=== PATIENT | female | born 1935 | race Hispanic/Latino ===

== ENCOUNTER → 2019-03-25 | Day surgery (SDC) | payer MEDICARE, OTHER ==
[2019-03-23 13:36] LABS: BASOPHILS # (AUTO) 0.1 (0.0-0.1); BASOPHILS % 0.8 % (0.0-1.0); EOSINOPHILS # (AUTO) 0.2 (0.0-0.4); HEMATOCRIT 36.3 % (34.2-44.1); HEMOGLOBIN 12.2 g/dL (12.0-16.0); LYMPHOCYTES # (AUTO) 1.9 (1.0-3.2); LYMPHOCYTES % 25.4 % (18.0-39.1); MEAN CORPUSCULAR HEMOGLOBIN 30.3 pg (28-32); MEAN CORPUSCULAR HGB CONC 33.6 g/dL (31-35); MEAN CORPUSCULAR VOLUME 90.1 fL (81-99); MONOCYTES # (AUTO) 0.4 (0.2-0.8); MONOCYTES % 5.5 % (4.4-11.3); NEUTROPHILS # (AUTO) 4.9 (2.1-6.9); NEUTROPHILS % 65.9 % (38.7-80.0); PLATELET COUNT 327 x10e3/uL (140-360); RED BLOOD COUNT 4.03 x10e6/uL (3.6-5.1); RED CELL DISTRIBUTION WIDTH 14.5 % (11.7-14.4)
[2019-03-23 13:43] LABS: BILIRUBIN,URINE NEGATIVE (NEGATIVE); CLARITY,URINE CLEAR (CLEAR); COLOR,URINE ORANGE (YELLOW); KETONES,URINE NEGATIVE (NEGATIVE); LEUKOCYTE ESTERASE ,URINE SMALL (NEGATIVE); NITRITE,URINE NEGATIVE (NEGATIVE); PROTEIN,URINE DIPSTICK 1+ (NEGATIVE); URINE UROBILINOGEN 0.2 mg/dL (0.2 - 1)
[2019-03-23 13:57] LABS: ALBUMIN 3.7 g/dL (3.5-5.0); ALBUMIN/GLOBULIN RATIO 1.1 (0.8-2.0); ANION GAP 15.3 mmol/L (8-16); CREATININE, SERUM 1.45 mg/dL (0.57-1.11); POTASSIUM 4.3 mmol/L (3.5-5.1)
--- NOTE | 2019-03-23 13:59 | Diagnostic Imaging Report ---
EXAMINATION: CHEST 2 VIEWS INDICATION: Pre-operative COMPARISON: None FINDINGS: LINES/TUBES:None LUNGS:The lungs are well-inflated. No focal consolidation or pulmonary edema. PLEURA:No pleural effusion or pneumothorax. MEDIASTINUM:The cardiomediastinal silhouette appears normal in size and shape. Atherosclerotic calcifications of the thoracic aorta. BONES/SOFT TISSUES:No acute osseous injury. ABDOMEN:No free air under the diaphragm. IMPRESSION: No focal pneumonia or pulmonary edema. Signed by: Liana Elliott MD on 03/23/2019 1:55 PM
[~2019-03-25] MED LIST: ALLOPURINOL100 MG PO; BUPIVACAINE 0.25%/EPI 30ML SDV INJ ONE; DEXAMETHASONE SOD PHOS INJ 4 MG/ML VIAL ONE; FENOFIBRATE PO; FENTANYL CITRATE/PF 100MCG/2 ML INJ ONE; GLYCOPYRROLATE INJ 1MG/ 5 ML SYR ONE; HYDROCODONE/APAP 7.5MG-325MG 1 EA TAB ONE; KETOROLAC TROMETHAMINE 30 MG/ML VIAL ONE; LEVOTHYROXINE25 MCG PO; LEVOTHYROXINE50 MCG PO; LIDOCAINE HCL 2% LOCAL INJ 5 ML SDV VIAL INJ ONE; LIPITOR20 MG PO; LOSARTAN POTAS100 MG PO; NEOSTIGMINE 5 MG/5ML SYR ONE; ONDANSETRON HCL INJ 2MG/ML 2ML 2 MG/ML VIAL ONE; POTASSIUM PO; PRAVASTATIN SOD10 MG PO; PROPOFOL IV EMULSION 10 MG/ML 20 ML VIAL ONE; SEVOFLURANE INHAL SOLN 250 ML PEN BTL ONE; SLOW-MAG64 MG PO; ULTRAM 50MG50 MG PO; VESICARE10 MG PO
--- OUTSIDE RECORDS SUMMARY | 2019-03-25 07:11 | XMS REPORT | Continuity of Care Document ---
Author Author [facility] Address Unknown Phone Unavailable Care Team Providers Care Zoology Technical Officer Name Role Phone [facility] Unavailable Unavailable Problems Problem Status Onset Date Classification Date Reported Comments Source CKD STAGE III GFR 30-59 Active 09/07/2014 Condition 03/16/2015 [facility] NEED PROPHYLACTIC VACCINATION&INOCULATION FLU Active 06/17/2014 Condition 03/16/2015 [facility] MICHAELLE POSITIVE Active 06/17/2014 Condition 03/16/2015 [facility] POLYARTHRALGIA Active 06/17/2014 Condition 03/16/2015 [facility] OSTEOPENIA Active 12/30/2013 Condition 03/16/2015 [facility] URINARY INCONTINENCE Active 12/30/2013 Condition 03/16/2015 [facility] PREVENTIVE HEALTH CARE Active 12/16/2013 Condition 03/16/2015 [facility] HYPERLIPIDEMIA Active 12/16/2013 Condition 03/16/2015 [facility] ESSENTIAL HYPERTENSION, BENIGN Active 12/16/2013 Condition 03/16/2015 [facility] HYPOTHYROIDISM Active 12/16/2013 Condition 03/16/2015 [facility] OTHER SCREENING MAMMOGRAM Active 12/16/2013 Condition 03/16/2015 [facility] SCREENING, COLON CANCER Active 12/16/2013 Condition 03/16/2015 [facility] SCREENING FOR GLAUCOMA Active 12/16/2013 Condition 03/16/2015 [facility] GOUT Active 12/16/2013 Condition 03/16/2015 [facility] CHRONIC KIDNEY DISEASE UNSPECIFIED Inactive 12/16/2013 Condition 03/16/2015 [facility] ARTHRITIS Active 12/16/2013 Condition 03/16/2015 [facility] SPECIAL SCREENING FOR OSTEOPOROSIS Inactive 12/16/2013 Condition 03/16/2015 [facility] NEED PROPH VACCINATION AGAINST STREP PNEUMONE Active 12/16/2013 Condition 03/16/2015 [facility] Medications Medication Details Route Status Patient Instructions Ordering Provider Order Date Source DIOVAN HCT 320-12.5 MG TABS Take one tablet by mouth once a day Active 12/30/2013 [facility] CALTRATE 600+D 600-400 MG-UNIT TABS 1 tablet twice daily Active 12/30/2013 [facility] DIOVAN HCT 320-12.5 MG TABS Take one tablet by mouth once a day Active 12/30/2013 [facility] DIOVAN HCT 320-12.5 MG TABS Take one tablet by mouth once a day Active 12/30/2013 [facility] FENOFIBRATE 160 MG TABS TAKE ONE TABLET BY MOUTH DAILY No Longer Active 12/16/2013 [facility] LEVOTHYROXINE SODIUM 50 MCG TABS TAKE ONE TABLET BY MOUTH EVERY MORNING Active 12/16/2013 [facility] AMLODIPINE BESYLATE 5 MG TABS TAKE ONE TABLET BY MOUTH DAILY No Longer Active 12/16/2013 [facility] ALLOPURINOL 100 MG TABS TAKE ONE TABLET BY MOUTH DAILY Active 12/16/2013 [facility] VESICARE 5 MG TABS TAKE ONE TABLET BY MOUTH DAILY Active 12/16/2013 [facility] PRAVASTATIN SODIUM 40 MG TABS TAKE ONE TABLET BY MOUTH DAILY Active 12/16/2013 [facility] LYRICA 75 MG CAPS TAKE ONE TO TWO CAPSULES BY MOUTH EVERY EVENING Active 12/16/2013 [facility] TRAMADOL-ACETAMINOPHEN 37.5-325 MG TABS TAKE TWO TABLETS BY MOUTH THREE TIMES DAILY NEEDED Active 12/16/2013 [facility] DIOVAN 320 MG TABS Take one tablet by mouth once a day Active 12/16/2013 [facility] AMLODIPINE BESYLATE 5 MG TABS TAKE ONE TABLET BY MOUTH DAILY No Longer Active 12/16/2013 [facility] FENOFIBRATE 160 MG TABS TAKE ONE TABLET BY MOUTH DAILY No Longer Active 12/16/2013 [facility] TRAMADOL-ACETAMINOPHEN 37.5-325 MG TABS TAKE TWO TABLETS BY MOUTH TWO TIMES DAILY NEEDED Active 12/16/2013 [facility] VESICARE 5 MG TABS TAKE ONE TABLET BY MOUTH DAILY Active 12/16/2013 [facility] PRAVASTATIN SODIUM 20 MG TABS Take one tablet by mouth once a day at night Active 12/16/2013 [facility] ALLOPURINOL 100 MG TABS TAKE ONE TABLET BY MOUTH DAILY Active 12/16/2013 [facility] LEVOTHYROXINE SODIUM 25 MCG TABS Take one tablet by mouth once a day 30 minutes before breakfast Active 12/16/2013 [facility] LYRICA 75 MG CAPS TAKE ONE TO TWO CAPSULES BY MOUTH EVERY EVENING No Longer Active 12/16/2013 [facility] AMLODIPINE BESYLATE 5 MG TABS TAKE ONE TABLET BY MOUTH DAILY No Longer Active 12/16/2013 [facility] LYRICA 75 MG CAPS TAKE ONE TO TWO CAPSULES BY MOUTH EVERY EVENING No Longer Active 12/16/2013 [facility] VESICARE 5 MG TABS TAKE ONE TABLET BY MOUTH DAILY Active 12/16/2013 [facility] PRAVASTATIN SODIUM 20 MG TABS Take one tablet by mouth once a day at night Active 12/16/2013 [facility] ALLOPURINOL 100 MG TABS TAKE ONE TABLET BY MOUTH DAILY Active 12/16/2013 [facility] LEVOTHYROXINE SODIUM 50 MCG TABS Take one tablet by mouth once a day 20 minutes before breakfast Active 12/16/2013 [facility] AMLODIPINE BESYLATE 5 MG TABS TAKE ONE TABLET BY MOUTH DAILY No Longer Active 12/16/2013 [facility] LYRICA 75 MG CAPS TAKE ONE TO TWO CAPSULES BY MOUTH EVERY EVENING Active 12/16/2013 [facility] TRAMADOL-ACETAMINOPHEN 37.5-325 MG TABS TAKE TWO TABLETS BY MOUTH TWO TIMES DAILY NEEDED Active 12/16/2013 [facility] ALLOPURINOL 100 MG TABS TAKE ONE TABLET BY MOUTH DAILY Active 12/16/2013 [facility] TRAMADOL-ACETAMINOPHEN 37.5-325 MG TABS TAKE TWO TABLETS BY MOUTH TWO TIMES DAILY NEEDED Active 12/16/2013 [facility] ALLOPURINOL 100 MG TABS TAKE ONE TABLET BY MOUTH DAILY Active 12/16/2013 [facility] Allergies, Adverse Reactions, Alerts No Known Medication Allergies Immunizations Immunization Date Given Site Status Last Updated Comments Source pneumococcal immunization administered 12/16/2013 completed [facility] Results Order Name Results Value Reference Range Date Interpretation Comments Source Chemistry TSH 5.000 0.360 - 3.740 03/16/2015 [facility] Chemistry TSH 5.000 0.360 - 3.740 03/16/2015 [facility] Chemistry T4, FREE 0.94 0.76 - 1.46 03/16/2015 [facility] Chemistry TSH 5.450 0.360 - 3.740 01/27/2015 [facility] Chemistry SODIUM 139 MEQ/L 135 - 145 01/27/2015 [facility] Chemistry POTASSIUM 4.5 MEQ/L 3.5 - 5.1 01/27/2015 [facility] CREATININE 1.2 0.5 - 1.4 01/27/2015 [facility] Chemistry BUN 25 7 - 22 01/27/2015 [facility] Chemistry BUN/CREAT 21 6 - 25 01/27/2015 [facility] Chemistry ALBUMIN 3.9 3.5 - 5.0 01/27/2015 [facility] Chemistry CALCIUM 9.6 8.5 - 10.5 01/27/2015 [facility] Chemistry SGPT (ALT) 28 0 - 65 01/27/2015 [facility] Chemistry SGOT (AST) 24 0 - 37 01/27/2015 [facility] Chemistry ALK PHOS 83 39 - 136 01/27/2015 [facility] Chemistry T4, FREE 0.88 0.76 - 1.46 01/27/2015 [facility] Chemistry TSH 5.450 0.360 - 3.740 01/27/2015 [facility] Chemistry TSH 0.032 0.360 - 3.740 11/23/2014 [facility] Chemistry TSH 0.032 0.360 - 3.740 11/23/2014 [facility] Chemistry T4, FREE 1.65 0.76 - 1.46 11/23/2014 [facility] Chemistry TSH 0.032 0.360 - 3.740 11/23/2014 [facility] Chemistry TSH 3.950 0.360 - 3.740 09/07/2014 [facility] CHOLESTEROL 116 - 199 09/07/2014 [facility] TRIGLYCERIDE 144 - 149 09/07/2014 [facility] Chemistry HDL 36 >=61 09/07/2014 [facility] Chemistry LDL 51 - 99 09/07/2014 [facility] Chemistry SODIUM 138 MEQ/L 135 - 145 09/07/2014 [facility] Chemistry POTASSIUM 4.6 MEQ/L 3.5 - 5.1 09/07/2014 [facility] Chemistry CREATININE 1.7 0.5 - 1.4 09/07/2014 [facility] Chemistry BUN 45 7 - 22 09/07/2014 [facility] Chemistry BUN/CREAT 26 6 - 25 09/07/2014 [facility] Chemistry ALBUMIN 3.7 3.5 - 5.0 09/07/2014 [facility] Chemistry CALCIUM 10.3 8.5 - 10.5 09/07/2014 [facility] Chemistry SGPT (ALT) 22 0 - 65 09/07/2014 [facility] Chemistry SGOT (AST) 19 0 - 37 09/07/2014 [facility] Chemistry ALK PHOS 56 39 - 136 09/07/2014 [facility] Chemistry TSH 3.950 0.360 - 3.740 09/07/2014 [facility] Chemistry TSH 3.950 0.360 - 3.740 09/07/2014 [facility] Chemistry SODIUM 139 MEQ/L 135 - 145 07/06/2014 [facility] Chemistry POTASSIUM 4.4 MEQ/L 3.5 - 5.1 07/06/2014 [facility] Chemistry CREATININE 1.5 0.5 - 1.4 07/06/2014 [facility] Chemistry BUN 32 7 - 22 07/06/2014 [facility] Chemistry BUN/CREAT 21 6 - 25 07/06/2014 [facility] Chemistry ALBUMIN 4.1 3.5 - 5.0 07/06/2014 [facility] Chemistry CALCIUM 10.8 8.5 - 10.5 07/06/2014 [facility] Chemistry SGPT (ALT) 24 0 - 65 07/06/2014 [facility] Chemistry SGOT (AST) 22 0 - 37 07/06/2014 [facility] Chemistry ALK PHOS 49 39 - 136 07/06/2014 [facility] Chemistry SODIUM 139 MEQ/L 135 - 145 07/06/2014 [facility] Chemistry POTASSIUM 4.4 MEQ/L 3.5 - 5.1 07/06/2014 [facility] Chemistry CREATININE 1.5 0.5 - 1.4 07/06/2014 [facility] Chemistry BUN 32 7 - 22 07/06/2014 [facility] Chemistry BUN/CREAT 21 6 - 25 07/06/2014 [facility] Chemistry ALBUMIN 4.1 3.5 - 5.0 07/06/2014 [facility] Chemistry CALCIUM 10.8 8.5 - 10.5 07/06/2014 [facility] Chemistry SGPT (ALT) 24 0 - 65 07/06/2014 [facility] Chemistry SGOT (AST) 22 0 - 37 07/06/2014 [facility] Chemistry ALK PHOS 49 39 - 136 07/06/2014 [facility] Chemistry SODIUM 139 MEQ/L 135 - 145 07/06/2014 [facility] Chemistry SODIUM 139 MEQ/L 135 - 145 07/06/2014 [facility] Chemistry TSH 2.560 0.360 - 3.740 12/17/2013 [facility] Chemistry CHOLESTEROL 123 - 199 12/17/2013 [facility] Chemistry TRIGLYCERIDE 153 - 149 12/17/2013 [facility] Chemistry HDL 38 >=61 12/17/2013 [facility] Chemistry TSH 2.560 0.360 - 3.740 12/17/2013 [facility] Chemistry CHOLESTEROL 123 - 199 12/17/2013 [facility] Chemistry TRIGLYCERIDE 153 - 149 12/17/2013 [facility] Chemistry HDL 38 >=61 12/17/2013 [facility] Chemistry LDL 54 - 99 12/17/2013 [facility] Chemistry URIC ACID 5.0 2.5 - 7.0 12/17/2013 [facility] Chemistry SODIUM 139 MEQ/L 135 - 145 12/17/2013 [facility] Chemistry POTASSIUM 4.3 MEQ/L 3.5 - 5.1 12/17/2013 [facility] Chemistry CREATININE 1.3 0.5 - 1.4 12/17/2013 [facility] Chemistry BUN 24 7 - 22 12/17/2013 [facility] Chemistry BUN/CREAT 18 6 - 25 12/17/2013 [facility] Chemistry ALBUMIN 3.9 3.5 - 5.0 12/17/2013 [facility] Chemistry CALCIUM 9.6 8.5 - 10.5 12/17/2013 [facility] Chemistry SGPT (ALT) 22 0 - 65 12/17/2013 [facility] Chemistry SGOT (AST) 20 0 - 37 12/17/2013 [facility] Chemistry ALK PHOS 49 39 - 136 12/17/2013 [facility] Chemistry TSH 2.560 0.360 - 3.740 12/17/2013 [facility] Chemistry CHOLESTEROL 123 - 199 12/17/2013 [facility] Chemistry TRIGLYCERIDE 153 - 149 12/17/2013 [facility] Chemistry HDL 38 >=61 12/17/2013 [facility] Chemistry LDL 54 - 99 12/17/2013 [facility] Chemistry URIC ACID 5.0 2.5 - 7.0 12/17/2013 [facility] Chemistry SODIUM 139 MEQ/L 135 - 145 12/17/2013 [facility] Chemistry POTASSIUM 4.3 MEQ/L 3.5 - 5.1 12/17/2013 [facility] Chemistry CREATININE 1.3 0.5 - 1.4 12/17/2013 [facility] Chemistry BUN 24 7 - 22 12/17/2013 [facility] Chemistry TSH 2.560 0.360 - 3.740 12/17/2013 [facility] Chemistry TSH 2.560 0.360 - 3.740 12/17/2013 [facility] Chemistry TSH 2.560 0.360 - 3.740 12/17/2013 [facility] Chemistry CHOLESTEROL 123 - 199 12/17/2013 [facility] Chemistry TRIGLYCERIDE 153 - 149 12/17/2013 [facility] Chemistry HDL 38 >=61 12/17/2013 [facility] Chemistry LDL 54 - 99 12/17/2013 [facility] Chemistry URIC ACID 5.0 2.5 - 7.0 12/17/2013 [facility] Chemistry SODIUM 139 MEQ/L 135 - 145 12/17/2013 [facility] Chemistry POTASSIUM 4.3 MEQ/L 3.5 - 5.1 12/17/2013 [facility] Chemistry CREATININE 1.3 0.5 - 1.4 12/17/2013 [facility] Chemistry BUN 24 7 - 22 12/17/2013 [facility] Chemistry BUN/CREAT 18 6 - 25 12/17/2013 [facility] Chemistry ALBUMIN 3.9 3.5 - 5.0 12/17/2013 [facility] Chemistry CALCIUM 9.6 8.5 - 10.5 12/17/2013 [facility] Chemistry SGPT (ALT) 22 0 - 65 12/17/2013 [facility] Chemistry SGOT (AST) 20 0 - 37 12/17/2013 [facility] Chemistry ALK PHOS 49 39 - 136 12/17/2013 [facility] Hematology HGB 13.3 12.0 - 16.0 12/17/2013 [facility] Hematology HCT 39.5 36.0 - 48.0 12/17/2013 [facility] Hematology PLATELETS 314 K/CMM 133 - 450 12/17/2013 [facility] Hematology ESR 15 0 - 20 12/17/2013 [facility] Hematology HGB 13.3 12.0 - 16.0 12/17/2013 [facility] Hematology HCT 39.5 36.0 - 48.0 12/17/2013 [facility] Hematology PLATELETS 314 K/CMM 133 - 450 12/17/2013 [facility] Hematology ESR 15 0 - 20 12/17/2013 [facility] Serology MICHAELLE Positive 12/17/2013 [facility] Serology MICHAELLE Positive 12/17/2013 [facility] Serology MICHAELLE Positive 12/17/2013 [facility] Serology MICHAELLE Positive 12/17/2013 [facility] Serology MICHAELLE Positive 12/17/2013 [facility] Serology MICHAELLE Positive 12/17/2013 [facility] Serology MICHAELLE Positive 12/17/2013 [facility] Serology MICHAELLE Positive 12/17/2013 [facility] Serology MICHAELLE Positive 12/17/2013 [facility] Serology MICHAELLE Positive 12/17/2013 [facility] Serology MICHAELLE Positive 12/17/2013 [facility] Serology MICHAELLE Positive 12/17/2013 [facility] Serology MICHAELLE Positive 12/17/2013 [facility] Pathology Reports No Data Provided for This Section Diagnostic Reports No Data Provided for This Section Consultation Notes No Data Provided for This Section Discharge Summaries No Data Provided for This Section History and Physicals No Data Provided for This Section Vital Signs Vital Sign Value Date Comments Source Height 61 01/27/2015 [facility] Weight 138.25 01/27/2015 [facility] Respitory Rate 16 01/27/2015 [facility] Systolic (mm Hg) 98 01/27/2015 [facility] Diastolic (mm Hg) 60 01/27/2015 [facility] Heart Rate 93 01/27/2015 [facility] Temperature Oral (F) 98.3 F 01/27/2015 [facility] Height 61 09/07/2014 [facility] Weight 140.38 09/07/2014 [facility] Temperature Oral (F) 97.0 F 09/07/2014 [facility] Respitory Rate 16 09/07/2014 [facility] Systolic (mm Hg) 130 09/07/2014 [facility] Diastolic (mm Hg) 58 09/07/2014 [facility] Heart Rate 52 09/07/2014 [facility] Height 61 06/17/2014 [facility] Weight 134 06/17/2014 [facility] Temperature Oral (F) 98.5 F 06/17/2014 [facility] Respitory Rate 14 06/17/2014 [facility] Heart Rate 65 06/17/2014 [facility] Systolic (mm Hg) 135 06/17/2014 [facility] Diastolic (mm Hg) 63 06/17/2014 [facility] Systolic (mm Hg) 159 12/30/2013 [facility] Diastolic (mm Hg) 67 12/30/2013 [facility] Heart Rate 55 12/30/2013 [facility] Respitory Rate 16 12/30/2013 [facility] Weight 136 12/30/2013 [facility] Respitory Rate 16 12/16/2013 [facility] Systolic (mm Hg) 140 12/16/2013 [facility] Diastolic (mm Hg) 71 12/16/2013 [facility] Heart Rate 71 12/16/2013 [facility] Height 61 12/16/2013 [facility] Weight 135.38 12/16/2013 [facility] Encounters Location Location Details Encounter Type Encounter Number Reason For Visit Attending Provider ADM Date DC Date Status Source [facility] Office Visit [id number] Kelsey Tay MD 12/16/2013 12/16/2013 [facility] Lab Report [id number] Kelsey Tay MD 12/17/2013 12/17/2013 [facility] Lab Report [id number] Kelsey Tay MD 12/17/2013 12/17/2013 [facility] Office Visit [id number] Kelsey Tay MD 12/30/2013 12/30/2013 [facility] Office Visit [id number] Kelsey Tay MD 06/17/2014 06/17/2014 [facility] Lab Report [id number] Kelsey Tay MD 07/06/2014 07/06/2014 [facility] Lab Report [id number] Kelsey Tay MD 09/07/2014 09/07/2014 [facility] Lab Report [id number] Kelsey Tay MD 11/23/2014 11/23/2014 [facility] Office Visit [id number] Kelsey Tay MD 01/27/2015 01/27/2015 [facility] Lab Report [id number] Kelsey Tay MD 01/27/2015 01/27/2015 [facility] Lab Report [id number] Kelsey Tay MD 03/16/2015 03/16/2015 [facility] Procedures Procedure Code Date Perfomer Comments Source bone density 4002.65 12/21/2013 Completed at [facility] Assessment and Plan No Data Provided for This Section Plan of Care No Data Provided for This Section Social History No Data Provided for This Section Family History No Data Provided for This Section Advance Directives No Data Provided for This Section Functional Status No Data Provided for This Section
--- OUTSIDE RECORDS SUMMARY | 2019-03-25 07:11 | XMS REPORT | Continuity of Care Document ---
Author Author [facility] Organization [facility] Address Unknown Phone Unavailable Care Team Providers Care Medical Leader Name Role Phone MD Jasvir, Kelsey SWIFT Unavailable Insurance Providers Payer name Policy type / Coverage type Policy ID Covered libertarian ID Policy [employer] [place] [employer] [place] [employer] [place] [employer] [place] [employer] [place]: [employer] [facility] DUAL COMPLETE - MEDICARE R [place] [employer] [place] [employer] [place]: [place] [employer] [place]: [place] [employer] [place]: [place] [employer] [place]: [place] [employer] [place]: [place] [employer] [place]: [place] [employer] [place]: [employer] Encounters Encounter Performer Location Date Lab Report Kelsey Tay MD [facility] December 17, 2013 Problems Problem Effective Dates Problem Status PREVENTIVE HEALTH CARE Dec 16, 2013 Active HYPERLIPIDEMIA Dec 16, 2013 Active ESSENTIAL HYPERTENSION, BENIGN Dec 16, 2013 Active HYPOTHYROIDISM Dec 16, 2013 Active OTHER SCREENING MAMMOGRAM Dec 16, 2013 Active SCREENING, COLON CANCER Dec 16, 2013 Active SCREENING FOR GLAUCOMA Dec 16, 2013 Active GOUT Dec 16, 2013 Active CHRONIC KIDNEY DISEASE UNSPECIFIED Dec 16, 2013 Active ARTHRITIS Dec 16, 2013 Active SPECIAL SCREENING FOR OSTEOPOROSIS Dec 16, 2013 Active NEED PROPH VACCINATION AGAINST STREP PNEUMONE Dec 16, 2013 Active Procedures Date Description Comments Dec 16, 2013 smoking status never smoker December 21, 2013 bone density Completed at [facility] Medications Medication Instructions Start Date Status FENOFIBRATE 160 MG TABS TAKE ONE TABLET BY MOUTH DAILY Dec 16, 2013 Active LEVOTHYROXINE SODIUM 50 MCG TABS TAKE ONE TABLET BY MOUTH EVERY MORNING Dec 16, 2013 Active AMLODIPINE BESYLATE 5 MG TABS TAKE ONE TABLET BY MOUTH DAILY Dec 16, 2013 Active ALLOPURINOL 100 MG TABS TAKE ONE TABLET BY MOUTH DAILY Dec 16, 2013 Active VESICARE 5 MG TABS TAKE ONE TABLET BY MOUTH DAILY Dec 16, 2013 Active PRAVASTATIN SODIUM 40 MG TABS TAKE ONE TABLET BY MOUTH DAILY Dec 16, 2013 Active LYRICA 75 MG CAPS TAKE ONE TO TWO CAPSULES BY MOUTH EVERY EVENING Dec 16, 2013 Active TRAMADOL-ACETAMINOPHEN 37.5-325 MG TABS TAKE TWO TABLETS BY MOUTH THREE TIMES DAILY NEEDED Dec 16, 2013 Active DIOVAN 320 MG TABS Take one tablet by mouth once a day Dec 16, 2013 Active Immunizations Vaccine Date Status pneumococcal immunization administered Dec 16, 2013 completed Vital Signs Date Description Test Result Dec 16, 2013 respiratory rate E&M - 9279-1 RESP RATE 16 /min Dec 16, 2013 blood pressure, systolic - 8480-6 BP SYSTOLIC 140 mm Hg Dec 16, 2013 blood pressure, diastolic - 8462-4 BP DIASTOLIC 71 mm Hg Dec 16, 2013 pulse rate E&M - 8867-4 PULSE RATE 71 /min Dec 16, 2013 height E&M - 8302-2 HEIGHT 61 in Dec 16, 2013 weight E&M - 3141-9 WEIGHT 135.38 lb Results Date Description Test Name Value Reference Interpretation Status December 17, 2013 hemoglobin, blood HGB 13.3 g/dL 12.0-16.0 December 17, 2013 hematocrit, blood HCT 39.5 % 36.0-48.0 December 17, 2013 platelet count PLATELETS 314 K/CMM /mm3 133-450 December 17, 2013 erythrocyte sedimentation rate ESR 15 mm/hr 0-20 December 17, 2013 hemoglobin, blood HGB 13.3 g/dL 12.0-16.0 December 17, 2013 hematocrit, blood HCT 39.5 % 36.0-48.0 December 17, 2013 platelet count PLATELETS 314 K/CMM /mm3 133-450 December 17, 2013 erythrocyte sedimentation rate ESR 15 mm/hr 0-20 December 17, 2013 thyroid stimulating hormone, serum TSH 2.560 uIU/mL 0.360-3.740 December 17, 2013 cholesterol, serum CHOLESTEROL 123 mg/dl <=199 December 17, 2013 triglyceride, serum, fasting TRIGLYCERIDE 153 mg/dl <=149 High December 17, 2013 HDL cholesterol, serum HDL 38 mg/dl >=61 Low December 17, 2013 LDL cholesterol, serum LDL 54 mg/dl <=99 December 17, 2013 uric acid, serum URIC ACID 5.0 mg/dL 2.5-7.0 December 17, 2013 sodium, serum SODIUM 139 MEQ/L mmol/L 135-145 December 17, 2013 potassium, serum POTASSIUM 4.3 MEQ/L mmol/L 3.5-5.1 December 17, 2013 creatinine, serum CREATININE 1.3 mg/dL 0.5-1.4 December 17, 2013 urea nitrogen, blood BUN 24 mg/dL 7- High December 17, 2013 urea nitrogen/creatinine ratio, serum BUN/CREAT 18 null 6-25 December 17, 2013 albumin, serum ALBUMIN 3.9 g/dL 3.5-5.0 December 17, 2013 calcium, serum CALCIUM 9.6 mg/dL 8.5-10.5 December 17, 2013 alanine aminotransferase (SGPT), serum SGPT (ALT) 22 U/L 0-65 December 17, 2013 aspartate aminotransferase (SGOT), serum SGOT (AST) 20 U/L 0-37 December 17, 2013 alkaline phosphatase, serum ALK PHOS 49 U/L 39-136 December 17, 2013 thyroid stimulating hormone, serum TSH 2.560 uIU/mL 0.360-3.740 December 17, 2013 cholesterol, serum CHOLESTEROL 123 mg/dl <=199 December 17, 2013 triglyceride, serum, fasting TRIGLYCERIDE 153 mg/dl <=149 High December 17, 2013 HDL cholesterol, serum HDL 38 mg/dl >=61 Low December 17, 2013 LDL cholesterol, serum LDL 54 mg/dl <=99 December 17, 2013 uric acid, serum URIC ACID 5.0 mg/dL 2.5-7.0 December 17, 2013 sodium, serum SODIUM 139 MEQ/L mmol/L 135-145 December 17, 2013 potassium, serum POTASSIUM 4.3 MEQ/L mmol/L 3.5-5.1 December 17, 2013 creatinine, serum CREATININE 1.3 mg/dL 0.5-1.4 December 17, 2013 urea nitrogen, blood BUN 24 mg/dL 7- High December 17, 2013 urea nitrogen/creatinine ratio, serum BUN/CREAT 18 null 6-25 December 17, 2013 albumin, serum ALBUMIN 3.9 g/dL 3.5-5.0 December 17, 2013 calcium, serum CALCIUM 9.6 mg/dL 8.5-10.5 December 17, 2013 alanine aminotransferase (SGPT), serum SGPT (ALT) 22 U/L 0-65 December 17, 2013 aspartate aminotransferase (SGOT), serum SGOT (AST) 20 U/L 0-37 December 17, 2013 alkaline phosphatase, serum ALK PHOS 49 U/L 39-136 December 17, 2013 antinuclear antibody MICHAELLE Positive null Negative Abnormal December 17, 2013 antinuclear antibody MICHAELLE Positive null Negative Abnormal
--- OUTSIDE RECORDS SUMMARY | 2019-03-25 07:11 | XMS REPORT | Continuity of Care Document ---
Author Author [facility] Organization [facility] Address Unknown Phone Unavailable Care Team Providers Care Cob Sawyer Name Role Phone MD Jasvir, Kelsey SWIFT Unavailable Insurance Providers Payer name Policy type / Coverage type Policy ID Covered green party ID Policy [employer] [place] [employer] [place] ACS - TMHP - TRADITIONAL MEDICARE B-[place]: [employer] MEDICARE B-[place]: [employer] MEDICARE B-[place]: [employer] MEDICARE B-[place]: [employer] [facility] DUAL COMPLETE - MEDICARE R [place]: [...] Location Date Lab Report Kelsey Tay MD [facility] December 17, 2013 Problems Problem [...] Dec 16, 2013 smoking status never smoker Medications Medication Instructions Start Date Status FENOFIBRATE [...] 2013 urea nitrogen, blood BUN 24 mg/dL 7-22 High December 17, 2013 urea nitrogen/creatinine ratio, [...]
--- OUTSIDE RECORDS SUMMARY | 2019-03-25 07:11 | XMS REPORT | Continuity of Care Document ---
Author Author [facility] Organization [facility] Address Unknown Phone Unavailable Care Team Providers Care Feed Mill Operator Name Role Phone MD Jasvir, Kelsey SWIFT Unavailable Insurance Providers Payer name Policy type / Coverage type Policy ID Covered republican ID Policy [employer] MEDIC[place]: [employer] [place] ACS - TMHP - TRADITIONAL MEDICARE B-[place]: [employer] MEDICARE B-[place]: [employer] MEDICARE B-[place]: [employer] MEDICARE B-[place]: [employer] [facility] DUAL COMPLETE - MEDICARE R [place]: ACS [...] [employer] Encounters Encounter Performer Location Date Office Visit Kelsey Tay MD [facility] Dec 16, 2013 Problems Problem Effective Dates Problem Status [...]
--- OUTSIDE RECORDS SUMMARY | 2019-03-25 07:11 | XMS REPORT | Continuity of Care Document ---
Author Author [facility] Address Unknown Phone Unavailable Care Team Providers Care Hardboard Coating Machine Operator Name Role Phone MD Jasvir, Kelsey SWIFT Unavailable Insurance Providers Payer name Policy type / Coverage type Policy ID Covered constitution party ID Policy [employer] MED[place]: [employer] [place] ACS - TMHP - TRADITIONAL MEDICARE B-[place]: [employer] MEDICARE B-[place]: [employer] MEDICARE B-[place]: [employer] MEDICARE B-[place]: NOVITAS [employer]UTIONS [facility] DUAL COMPLETE - MEDICARE R [place]ID-[place]: [...] Location Date Office Visit Kelsey Tay MD [facility] December 30, 2013 Problems Problem Effective Dates Problem Status [...] AGAINST STREP PNEUMONE Dec 16, 2013 Active OSTEOPENIA December 30, 2013 Active URINARY INCONTINENCE December 30, 2013 Active Procedures Date Description Comments Dec 16, 2013 smoking status never smoker December 21, 2013 bone density Completed at [facility] Medications Medication Instructions Start Date Status LEVOTHYROXINE SODIUM 50 MCG TABS TAKE ONE TABLET BY MOUTH EVERY MORNING Dec 16, 2013 Active ALLOPURINOL 100 MG [...] TIMES DAILY NEEDED Dec 16, 2013 Active AMLODIPINE BESYLATE 5 MG TABS TAKE ONE TABLET BY MOUTH DAILY Dec 16, 2013 Inactive DIOVAN HCT 320-12.5 MG TABS Take one tablet by mouth once a day December 30, 2013 Active FENOFIBRATE 160 MG TABS TAKE ONE TABLET BY MOUTH DAILY Dec 16, 2013 Inactive CALTRATE 600+D 600-400 MG-UNIT TABS 1 tablet twice daily December 30, 2013 Active Immunizations Vaccine Date Status pneumococcal [...] weight E&M - 3141-9 WEIGHT 135.38 lb December 30, 2013 blood pressure, systolic - 8480-6 BP SYSTOLIC 159 mm Hg December 30, 2013 blood pressure, diastolic - 8462-4 BP DIASTOLIC 67 mm Hg December 30, 2013 pulse rate E&M - 8867-4 PULSE RATE 55 /min December 30, 2013 respiratory rate E&M - 9279-1 RESP RATE 16 /min December 30, 2013 weight E&M - 3141-9 WEIGHT 136 lb Results Date Description Test Name Value Reference Interpretation Status December 17, 2013 hemoglobin, blood HGB 13.3 g/dL 12.0-16.0 December 17, 2013 hematocrit, blood HCT 39.5 % 36.0-48.0 December 17, 2013 platelet count PLATELETS 314 K/CMM /mm3 133-450 December 17, 2013 erythrocyte sedimentation rate ESR 15 mm/hr 0-December 17, 2013 hemoglobin, blood HGB 13.3 g/dL 12.0-16.0 December 17, 2013 hematocrit, blood HCT 39.5 % 36.0-48.0 December 17, 2013 platelet count PLATELETS 314 K/CMM /mm3 133-450 December 17, 2013 erythrocyte sedimentation rate ESR 15 mm/hr 0-December 17, 2013 thyroid stimulating hormone, serum TSH [...]
--- OUTSIDE RECORDS SUMMARY | 2019-03-25 07:11 | XMS REPORT | Continuity of Care Document ---
Author Author [facility] Organization [facility] Address Unknown Phone Unavailable Care Team Providers Care Marketing Communications Coordinator Name Role Phone MD Jasvir, Kelsey SWIFT Unavailable Insurance Providers Payer name Policy type / Coverage type Policy ID Covered libertarian ID Policy [employer] MEDIC[place]: [employer] [place] ACS - TMHP - TRADITIONAL MEDICARE B-[place]: [employer] MEDICARE B-[place]: [employer] MEDICARE B-[place]: [employer] MEDICARE B-[place]: NOVITAS [place] [facility] DUAL COMPLETE - MEDICARE R [place]: ACS - TMHP - TRADITIONAL MEDICARE B-[place]: [place]AS [place]: ACS - TMHP - TRADITIONAL MEDICARE B-[place]: [place]: ACS - TMHP - TRADITIONAL MEDICARE B-TX: NOVITAS [employer]UT[employer] [place]: ACS - TMHP - TRADITIONAL MEDICARE B-[place]: [employer] [place]: ACS - TMHP - TRADITIONAL MEDICARE B-[place]: [employer] [place]: ACS - TMHP - TRADITIONAL MEDICARE B-[place]: [employer] [place]: ACS - TMHP - TRADITIONAL MEDICARE B-[place]: [employer] [place]: ACS - TMHP - TRADITIONAL MEDICARE B-[place]: [place]: ACS - TMHP - TRADITIONAL MEDICARE [...] - TMHP - TRADITIONAL MEDICARE B-[place]: [place]: ACS - TMHP - TRADITIONAL MEDICARE B-[place]: [place]AS [place]: ACS - TMHP - TRADITIONAL MEDICARE B-[place]: [employer] [place] [facility] - DUAL COMPLETE - (MEDICAR [place]: ACS - TMHP - TRADITIONAL MEDICARE [...] ACS - TMHP - TRADITIONAL MEDIC[place] B[place]: [employer] [place] Encounters Encounter Performer Location Date Lab Report Kelsey Tay MD [facility] Mar 16, 2015 Problems Problem Effective Dates Problem Status PREVENTIVE HEALTH CARE Dec 16, 2013 Active HYPERLIPIDEMIA Dec 16, 2013 Active ESSENTIAL HYPERTENSION, BENIGN Dec 16, 2013 Active HYPOTHYROIDISM Dec 16, 2013 Active OTHER SCREENING MAMMOGRAM Dec 16, 2013 Active SCREENING, COLON CANCER Dec 16, 2013 Active SCREENING FOR GLAUCOMA Dec 16, 2013 Active GOUT Dec 16, 2013 Active CHRONIC KIDNEY DISEASE UNSPECIFIED Dec 16, 2013 Inactive ARTHRITIS Dec 16, 2013 Active SPECIAL SCREENING FOR OSTEOPOROSIS Dec 16, 2013 Inactive NEED PROPH VACCINATION AGAINST STREP PNEUMONE Dec 16, 2013 Active OSTEOPENIA December 30, 2013 Active URINARY INCONTINENCE December 30, 2013 Active NEED PROPHYLACTIC VACCINATION&INOCULATION FLU Jun 17, 2014 Active MICHAELLE POSITIVE Jun 17, 2014 Active POLYARTHRALGIA Jun 17, 2014 Active CKD STAGE III (MODERATE) GFR 30-59 Sep 07, 2014 Active Procedures Date Description Comments Dec 16, 2013 smoking status never smoker December 21, 2013 bone density Completed at [facility] Jun 17, 2014 smoking status Never smoker Sep 07, 2014 smoking status Never smoker Jan 27, 2015 smoking status Never smoker Medications Medication Instructions Start Date Status AMLODIPINE BESYLATE 5 MG TABS TAKE ONE TABLET BY MOUTH DAILY Dec 16, 2013 Inactive FENOFIBRATE 160 MG TABS TAKE ONE TABLET BY MOUTH DAILY Dec 16, 2013 Inactive CALTRATE 600+D 600-400 MG-UNIT TABS 1 tablet twice daily December 30, 2013 Active TRAMADOL-ACETAMINOPHEN 37.5-325 MG TABS TAKE TWO TABLETS BY MOUTH TWO TIMES DAILY NEEDED Dec 16, 2013 Active DIOVAN HCT 320-12.5 MG TABS Take one tablet by mouth once a day December 30, 2013 Active VESICARE 5 MG TABS TAKE ONE TABLET BY MOUTH DAILY Dec 16, 2013 Active PRAVASTATIN SODIUM 20 MG TABS Take one tablet by mouth once a day at night Dec 16, 2013 Active ALLOPURINOL 100 MG TABS TAKE ONE TABLET BY MOUTH DAILY Dec 16, 2013 Active LEVOTHYROXINE SODIUM 25 MCG TABS Take one tablet by mouth once a day 30 minutes before breakfast Dec 16, 2013 Active LYRICA 75 MG CAPS TAKE ONE TO TWO CAPSULES BY MOUTH EVERY EVENING Dec 16, 2013 Inactive Immunizations Vaccine Date Status pneumococcal immunization administered [...] weight E&M - 3141-9 WEIGHT 136 lb Jun 17, 2014 height E&M - 8302-2 HEIGHT 61 in Jun 17, 2014 weight E&M - 3141-9 WEIGHT 134 lb Jun 17, 2014 temperature E&M TEMPERATURE 98.5 deg f Jun 17, 2014 respiratory rate E&M - 9279-1 RESP RATE 14 /min Jun 17, 2014 pulse rate E&M - 8867-4 PULSE RATE 65 /min Jun 17, 2014 blood pressure, systolic - 8480-6 BP SYSTOLIC 135 mm Hg Jun 17, 2014 blood pressure, diastolic - 8462-4 BP DIASTOLIC 63 mm Hg Sep 07, 2014 height E&M - 8302-2 HEIGHT 61 in Sep 07, 2014 weight E&M - 3141-9 WEIGHT 140.38 lb Sep 07, 2014 temperature E&M TEMPERATURE 97.0 deg f Sep 07, 2014 respiratory rate E&M - 9279-1 RESP RATE 16 /min Sep 07, 2014 blood pressure, systolic - 8480-6 BP SYSTOLIC 130 mm Hg Sep 07, 2014 blood pressure, diastolic - 8462-4 BP DIASTOLIC 58 mm Hg Sep 07, 2014 pulse rate E&M - 8867-4 PULSE RATE 52 /min Jan 27, 2015 height E&M - 8302-2 HEIGHT 61 in Jan 27, 2015 weight E&M - 3141-9 WEIGHT 138.25 lb Jan 27, 2015 respiratory rate E&M - 9279-1 RESP RATE 16 /min Jan 27, 2015 blood pressure, systolic - 8480-6 BP SYSTOLIC 98 mm Hg Jan 27, 2015 blood pressure, diastolic - 8462-4 BP DIASTOLIC 60 mm Hg Jan 27, 2015 pulse rate E&M - 8867-4 PULSE RATE 93 /min Jan 27, 2015 temperature E&M TEMPERATURE 98.3 deg f Results Date Description Test Name Value Reference [...] urea nitrogen/creatinine ratio, serum BUN/CREAT 18 null 6-December 17, 2013 albumin, serum ALBUMIN 3.9 g/dL 3.5-5.0 December 17, 2013 calcium, serum CALCIUM 9.6 mg/dL 8.5-10.5 December 17, 2013 alanine aminotransferase (SGPT), serum SGPT (ALT) 22 U/L 0-December 17, 2013 aspartate aminotransferase (SGOT), serum SGOT (AST) 20 U/L 0-December 17, 2013 alkaline phosphatase, serum ALK PHOS 49 U/L 39-136 Jul 06, 2014 sodium, serum SODIUM 139 MEQ/L mmol/L 135-145 Jul 06, 2014 potassium, serum POTASSIUM 4.4 MEQ/L mmol/L 3.5-5.1 Jul 06, 2014 creatinine, serum CREATININE 1.5 mg/dL 0.5-1.4 High Jul 06, 2014 urea nitrogen, blood BUN 32 mg/dL 7-22 High Jul 06, 2014 urea nitrogen/creatinine ratio, serum BUN/CREAT 21 null 6-Jul 06, 2014 albumin, serum ALBUMIN 4.1 g/dL 3.5-5.0 Jul 06, 2014 calcium, serum CALCIUM 10.8 mg/dL 8.5-10.5 High Jul 06, 2014 alanine aminotransferase (SGPT), serum SGPT (ALT) 24 U/L 0-65 Jul 06, 2014 aspartate aminotransferase (SGOT), serum SGOT (AST) 22 U/L 0-37 Jul 06, 2014 alkaline phosphatase, serum ALK PHOS 49 U/L 39-136 Nov 23, 2014 thyroid stimulating hormone, serum TSH 0.032 uIU/mL 0.360-3.740 Low Mar 16, 2015 thyroid stimulating hormone, serum TSH 5.000 uIU/mL 0.360-3.740 High December 17, 2013 thyroid stimulating hormone, serum [...] urea nitrogen/creatinine ratio, serum BUN/CREAT 18 null 6-December 17, 2013 albumin, serum ALBUMIN 3.9 g/dL 3.5-5.0 December 17, 2013 calcium, serum CALCIUM 9.6 mg/dL 8.5-10.5 December 17, 2013 alanine aminotransferase (SGPT), serum SGPT (ALT) 22 U/L 0-65 December 17, 2013 aspartate aminotransferase (SGOT), serum SGOT (AST) 20 U/L 0-37 December 17, 2013 alkaline phosphatase, serum ALK PHOS 49 U/L 39-136 Jul 06, 2014 sodium, serum SODIUM 139 MEQ/L mmol/L 135-145 Jul 06, 2014 potassium, serum POTASSIUM 4.4 MEQ/L mmol/L 3.5-5.1 Jul 06, 2014 creatinine, serum CREATININE 1.5 mg/dL 0.5-1.4 High Jul 06, 2014 urea nitrogen, blood BUN 32 mg/dL 7-22 High Jul 06, 2014 urea nitrogen/creatinine ratio, serum BUN/CREAT 21 null 6-25 Jul 06, 2014 albumin, serum ALBUMIN 4.1 g/dL 3.5-5.0 Jul 06, 2014 calcium, serum CALCIUM 10.8 mg/dL 8.5-10.5 High Jul 06, 2014 alanine aminotransferase (SGPT), serum SGPT (ALT) 24 U/L 0-65 Jul 06, 2014 aspartate aminotransferase (SGOT), serum SGOT (AST) 22 U/L 0-37 Jul 06, 2014 alkaline phosphatase, serum ALK PHOS 49 U/L 39-136 Sep 07, 2014 thyroid stimulating hormone, serum TSH 3.950 uIU/mL 0.360-3.740 High Sep 07, 2014 cholesterol, serum CHOLESTEROL 116 mg/dl <=199 Sep 07, 2014 triglyceride, serum, fasting TRIGLYCERIDE 144 mg/dl <=149 Sep 07, 2014 HDL cholesterol, serum HDL 36 mg/dl >=61 Low Sep 07, 2014 LDL cholesterol, serum LDL 51 mg/dl <=99 Sep 07, 2014 sodium, serum SODIUM 138 MEQ/L mmol/L 135-145 Sep 07, 2014 potassium, serum POTASSIUM 4.6 MEQ/L mmol/L 3.5-5.1 Sep 07, 2014 creatinine, serum CREATININE 1.7 mg/dL 0.5-1.4 High Sep 07, 2014 urea nitrogen, blood BUN 45 mg/dL 7- High Sep 07, 2014 urea nitrogen/creatinine ratio, serum BUN/CREAT 26 null 6-25 High Sep 07, 2014 albumin, serum ALBUMIN 3.7 g/dL 3.5-5.0 Sep 07, 2014 calcium, serum CALCIUM 10.3 mg/dL 8.5-10.5 Sep 07, 2014 alanine aminotransferase (SGPT), serum SGPT (ALT) 22 U/L 0-65 Sep 07, 2014 aspartate aminotransferase (SGOT), serum SGOT (AST) 19 U/L 0-37 Sep 07, 2014 alkaline phosphatase, serum ALK PHOS 56 U/L 39-136 Nov 23, 2014 thyroid stimulating hormone, serum TSH 0.032 uIU/mL 0.360-3.740 Low Nov 23, 2014 thyroxine, serum, free T4, FREE 1.65 ng/dl 0.76-1.46 High Jan 27, 2015 thyroid stimulating hormone, serum TSH 5.450 uIU/mL 0.360-3.740 High Jan 27, 2015 sodium, serum SODIUM 139 MEQ/L mmol/L 135-145 Jan 27, 2015 potassium, serum POTASSIUM 4.5 MEQ/L mmol/L 3.5-5.1 Jan 27, 2015 creatinine, serum CREATININE 1.2 mg/dL 0.5-1.4 Jan 27, 2015 urea nitrogen, blood BUN 25 mg/dL 7- High Jan 27, 2015 urea nitrogen/creatinine ratio, serum BUN/CREAT 21 null 6-25 Jan 27, 2015 albumin, serum ALBUMIN 3.9 g/dL 3.5-5.0 Jan 27, 2015 calcium, serum CALCIUM 9.6 mg/dL 8.5-10.5 Jan 27, 2015 alanine aminotransferase (SGPT), serum SGPT (ALT) 28 U/L 0-65 Jan 27, 2015 aspartate aminotransferase (SGOT), serum SGOT (AST) 24 U/L 0-37 Jan 27, 2015 alkaline phosphatase, serum ALK PHOS 83 U/L 39-136 Jan 27, 2015 thyroxine, serum, free T4, FREE 0.88 ng/dl 0.76-1.46 Mar 16, 2015 thyroid stimulating hormone, serum TSH 5.000 uIU/mL 0.360-3.740 High Mar 16, 2015 thyroxine, serum, free T4, FREE 0.94 ng/dl 0.76-1.46 December 17, 2013 antinuclear antibody MICHAELLE Positive null Negative Abnormal December 17, 2013 antinuclear antibody MICHAELLE Positive null Negative Abnormal
--- OUTSIDE RECORDS SUMMARY | 2019-03-25 07:11 | XMS REPORT | Continuity of Care Document ---
Author Author [facility] Organization [facility] Address Unknown Phone Unavailable Care Team Providers Care Tongue And Groove Machine Operator Name Role Phone MD Jasvir, Kelsey SWIFT Unavailable Insurance Providers Payer name Policy type / Coverage type Policy ID Covered green party ID Policy [employer] [place] [employer] [place] ACS - TMHP - TRADITIONAL MEDICARE B-[place]: [employer] MEDICARE B-[place]: [employer] MEDICARE B-[place]: [employer] MEDICARE B-[place]: NOVITAS SOLUTIONS [facility] DUAL COMPLETE - MEDICARE R [place]: ACS - TMHP - TRADITIONAL MEDICARE B-[place]: NOVITAS [place]: ACS - TMHP - TRADITIONAL MEDICARE B-[place]: NOVITAS [place]: ACS - TMHP - TRADITIONAL MEDICARE B-[place]: [employer] [place]: ACS - TMHP - TRADITIONAL MEDICARE B-[place]: [employer] [place]: ACS - TMHP - TRADITIONAL MEDICARE B-[place]: [employer] [place]: ACS - TMHP - TRADITIONAL MEDICARE B-[place]: [employer] [place]: ACS - TMHP - TRADITIONAL MEDICARE B-[place]: [employer] [place]: ACS - TMHP - TRADITIONAL MEDICARE B-[place]: NOVITAS [place]: ACS - TMHP - TRADITIONAL MEDICARE [...] - TMHP - TRADITIONAL MEDICARE B-[place]: [employer]OV[employer]AS [place]: ACS - TMHP - TRADITIONAL MEDICARE B-[place]: [employer] [place]: ACS - TMHP - TRADITIONAL MEDICARE B-[place]: [employer] Encounters Encounter Performer Location Date Office Visit Kelsey Tay MD [facility] Jun 17, 2014 Problems Problem Effective Dates Problem Status PREVENTIVE [...] 2014 Active POLYARTHRALGIA Jun 17, 2014 Active Procedures Date Description Comments Dec 16, 2013 smoking status never smoker December 21, 2013 bone density Completed at [facility] Jun 17, 2014 smoking status Never smoker Medications Medication Instructions Start Date Status AMLODIPINE BESYLATE 5 MG TABS TAKE ONE TABLET BY MOUTH DAILY Dec 16, 2013 Inactive FENOFIBRATE 160 MG TABS TAKE ONE TABLET BY MOUTH DAILY Dec 16, 2013 Inactive CALTRATE 600+D 600-400 MG-UNIT TABS 1 tablet twice daily December 30, 2013 Active LYRICA 75 MG CAPS TAKE [...] MOUTH EVERY MORNING Dec 16, 2013 Active Immunizations Vaccine Date [...] - 8462-4 BP DIASTOLIC 63 mm Hg Results Date Description Test Name Value Reference [...] 2013 urea nitrogen, blood BUN 24 mg/dL - High December 17, 2013 urea nitrogen/creatinine ratio, [...] 2013 urea nitrogen, blood BUN 24 mg/dL 03-09 High December 17, 2013 urea nitrogen/creatinine ratio, [...]
--- OUTSIDE RECORDS SUMMARY | 2019-03-25 07:12 | XMS REPORT | Continuity of Care Document ---
Author Author [facility] Organization [facility] Address Unknown Phone Unavailable Care Team Providers Care Pattern Hanger Name Role Phone MD Jasvir, Kelsey SWIFT Unavailable Insurance Providers Payer name Policy type / Coverage type Policy ID Covered libertarian ID Policy [employer] MEDIC[place]: [employer] [place] ACS - TMHP - TRADITIONAL MEDICARE B-[place]: [employer] MEDICARE B-[place]: [employer] MEDICARE B-[place]: [employer] MEDICARE B-[place]: NOVITAS [address] [facility] DUAL COMPLETE - MEDICARE R [place]: ACS - TMHP - TRADITIONAL MEDICARE B-[place]: [employer]OVITAS [address] [place] ACS - TMHP - TRADITIONAL MEDICARE B-[place]: [employer] [address] [place]: ACS - TMHP - TRADITIONAL MEDICARE B-[place]: [employer] [place]: ACS - TMHP - TRADITIONAL MEDICARE B-[place]: [employer] [place]: ACS - TMHP - TRADITIONAL MEDICARE B-[place]: [employer] [place]: ACS - TMHP - TRADITIONAL MEDICARE B-[place]: [employer] [place]: ACS - TMHP - TRADITIONAL MEDICARE B-[place]: [employer] [place]: ACS - TMHP - TRADITIONAL MEDICARE B-[place]: NOVITAS [address] [place] ACS - TMHP - TRADITIONAL MEDICARE [...] - TMHP - TRADITIONAL MEDICARE B-[place]: [employer]AS [address] [place]: ACS - TMHP - TRADITIONAL MEDICARE B-[place]: [employer]OV[place]AS [address] [place]: ACS - TMHP - TRADITIONAL MEDICARE B-[place]: [employer] [address] [facility] - DUAL COMPLETE - ([place]: ACS [...] ACS - TMHP - TRADITIONAL MEDIC[place] B-[place]: [employer] [address] [place] Encounters Encounter Performer Location Date Office Visit Kelsey Tay MD [facility] Jan 27, 2015 Problems Problem Effective Dates Problem Status [...] December 21, 2013 bone density Completed at [facility] Jun 17, 2014 smoking status Never smoker [...] hormone, serum TSH 0.032 uIU/mL 0.360-3.740 Low December 17, 2013 thyroid stimulating hormone, serum [...] urea nitrogen/creatinine ratio, serum BUN/CREAT 18 null -December 17, 2013 albumin, serum ALBUMIN 3.9 g/dL [...] 2014 urea nitrogen, blood BUN 32 mg/dL - High Jul 06, 2014 urea nitrogen/creatinine ratio, serum BUN/CREAT 21 null -Jul 06, 2014 albumin, serum ALBUMIN 4.1 g/dL [...] 2014 urea nitrogen, blood BUN 45 mg/dL - High Sep 07, 2014 urea nitrogen/creatinine ratio, [...] 2015 urea nitrogen, blood BUN 25 mg/dL 7-22 High Jan 27, 2015 urea nitrogen/creatinine ratio, [...] serum, free T4, FREE 0.88 ng/dl 0.76-1.46 December 17, 2013 antinuclear antibody MICHAELLE Positive null Negative Abnormal December 17, 2013 antinuclear antibody MICHAELLE Positive null Negative Abnormal
--- OUTSIDE RECORDS SUMMARY | 2019-03-25 07:12 | XMS REPORT ---
Author Author [facility] Address Unknown Phone Unavailable Care Team Providers Care Fiber Optic Assembler Name Role Phone Norma DAVIS Unavailable Unavailable Problems This patient has no known problems. Allergies, Adverse Reactions, Alerts This patient has no known allergies or adverse reactions. Medications This patient has no known medications. Results Test Description Test Time Test Comments Text Results Atomic Results Result Comments CHEST 2 VIEWS 2019-03-23 13:54:00 [place] [address] Patient Name: KYUNG MIXON MR #: [id number] : 1935 Age/Sex: 83/F Req #: [id number] [facility] Physician: Ordered by: JEFF DAVIS MD Report #: [id number] Location: OR Room/Bed: Procedure: [id number] DX/CHEST 2 VIEWS Exam Date: 03/23/19 Exam Time: 1326 REPORT STATUS: Signed EXAMINATION: CHEST 2 VIEWS INDICATION: Pre-operative COMPARISON: None FINDINGS: LINES/TUBES:None LUNGS:The lungs are well-inflated. No focal consolidation or pulmonary edema. PLEURA:No pleural effusion or pneumothorax. MEDIASTINUM:The cardiomediastinal silhouette appears normal in size and shape. Atherosclerotic calcifications of the thoracic aorta. BONES/SOFT TISSUES:No acute osseous injury. ABDOMEN:No free air under the diaphragm. IMPRESSION: No focal pneumonia or pulmonary edema. Signed by: Helen Fontenot MD on 03/23/2019 1:55 PM Dictated By: HELEN FONTENOT MD [id number] Transcribed By: FLAHS on 03/23/19 0732 COPY TO: JEFF DAVIS MD SCR MAMM BILATERAL WINIFRED CAD DIGITAL 2018-08-15 14:39:29 - SCR MAMM BILATERAL WINIFRED CAD DIGITALBILATERAL DIGITAL SCREENING MAMMOGRAM 3D/2D WITH CAD: 08/15/2018CLINICAL: Asymptomatic. Digital breast tomosynthesis was performed in addition to routine CC and MLO views. Current mammographic images were evaluated by either a [employer] M-Vu or a [employer] CAD (computer aided detection system). No prior exams were available for comparison. The tissue of both breasts is predominantly fatty. There are benign vascular calcifications in both breasts. No suspicious mass, architectural distortion, malignant type calcification, or lymph node abnormality detected. IMPRESSION: BENIGNThere is no mammographic evidence of malignancy. Resume annual screening mammography in one year. Ariadne Lam M.D. dm/magda:08/15/2018 14:39:29 Attending Technologist: Micaela PATRICK, [facility]-FWImaging Technologist: Stephanie PATRICK, [facility]-FWletter sent: BIRADS 1-2 Normal Mammogram BI-RADS: 2 Benign
--- OUTSIDE RECORDS SUMMARY | 2019-03-25 07:12 | XMS REPORT | Continuity of Care Document ---
Author Author [facility] Organization [facility] Address Unknown Phone Unavailable Care Team Providers Care Baffle Installer Name Role Phone MD Jasvir, Kelsey SWIFT Unavailable Insurance Providers Payer name Policy type / Coverage type Policy ID Covered libertarian ID Policy [employer] [place] [employer] [place] ACS - TM[place] - TRADITIONAL MEDIC[place]: [employer] MED[place]: [employer]AS [employer] MED[place]: NOVITAS SOLUTIONS [place]: NOVITAS Aries[facility] DUAL COMPLETE - MEDICARE R [place]: ACS - TMHP - TRADITIONAL MEDIC[place] B-[place]: NOVITAS [place] ACS - TMHP - TRADITIONAL MEDIC[place] B-[place]: NOVITAS [place]: ACS - TMHP - TRADITIONAL MEDICARE B-[place]: [employer] [place]: ACS - TMHP - TRADITIONAL MEDICARE B-[place]: [employer] [place]: ACS - TMHP - TRADITIONAL MEDICARE B-[place]: [employer] [place]: ACS - TMHP - TRADITIONAL MEDICARE B-[place]: N[employer]AS [employer] [place]: ACS - TMHP - TRADITIONAL MEDICARE B-[place]: [employer] [place]: ACS - TMHP - TRADITIONAL MEDICARE B-[place]: NOVITAS [employer] [place]: ACS - TMHP - TRADITIONAL MEDICARE [...] - TMHP - TRADITIONAL MED[place]: NOVITAS [place] ACS - TMHP - TRADITIONAL MEDICARE B-[place]: NOVITAS [place]: ACS - TMHP - TRADITIONAL MEDICARE B-[place]: [facility] - DUAL COMPLETE - ([place]: ACS [...] ACS - TMHP - TRADITIONAL [place]IC[place] B-[place]: [employer] Arieso Encounters Encounter Performer Location Date Lab Report Kelsey Tay MD [facility] Sep 07, 2014 Problems Problem Effective Dates Problem Status [...] December 21, 2013 bone density Completed at [facility] Jun 17, 2014 smoking status Never smoker Sep 07, 2014 smoking status Never smoker Medications Medication [...] 2013 Active LEVOTHYROXINE SODIUM 50 MCG TABS Take one tablet by mouth once a day 20 minutes before breakfast Dec 16, 2013 Active Immunizations Vaccine Date [...] E&M - 8867-4 PULSE RATE 52 /min Results Date Description Test Name Value Reference [...] 2014 urea nitrogen, blood BUN 32 mg/dL 7- High Jul 06, 2014 urea nitrogen/creatinine ratio, [...] 2014 urea nitrogen, blood BUN 32 mg/dL 7- High Jul 06, 2014 urea nitrogen/creatinine ratio, [...] 2014 urea nitrogen, blood BUN 45 mg/dL 7-22 High Sep 07, 2014 urea nitrogen/creatinine ratio, [...] phosphatase, serum ALK PHOS 56 U/L 39-136 December 17, 2013 antinuclear antibody MICHAELLE Positive null Negative Abnormal December 17, 2013 antinuclear antibody MICHAELLE Positive null Negative Abnormal
--- OUTSIDE RECORDS SUMMARY | 2019-03-25 07:12 | XMS REPORT | Continuity of Care Document ---
Author Author [facility] Organization [facility] Address Unknown Phone Unavailable Care Team Providers Care Fountain Helper Name Role Phone MD Jasvir, Kelsey SWIFT Unavailable Insurance Providers Payer name Policy type / Coverage type Policy ID Covered republican ID Policy [employer] [place] [employer] [place] ACS - TMHP - TRADITIONAL MEDICARE B[place]: [employer] MEDICARE B[place]: [employer] MEDICARE B-[place]: N[employer]AS [employer] MEDICARE B-[place]: NOVITAS SOLUTIONS [facility] DUAL COMPLETE - MEDICARE R [place]: ACS - TMHP - TRADITIONAL MEDICARE B-[place]: NOVITAS [email or web address] [place]: ACS - TMHP - TRADITIONAL MEDICARE B-[place]: NOVITAS [email or web address] [place]: ACS - TMHP - TRADITIONAL MEDICARE B-[place]: [employer] [place]: ACS - TMHP - TRADITIONAL MEDICARE B-[place]: [employer] [place]: ACS - TMHP - TRADITIONAL MEDICARE B-[place]: [employer] [place]: ACS - TMHP - TRADITIONAL MEDICARE B-[place]: [employer] [place]: ACS - TMHP - TRADITIONAL MEDICARE B-[place]: N[employer] [place]: ACS - TMHP - TRADITIONAL MEDICARE B-[place]: NOVITAS [email or web address] [place]: ACS - TMHP - TRADITIONAL MEDICARE [...] - TMHP - TRADITIONAL MEDIC[place]: NOVITAS [email or web address] [place]: ACS - TMHP - TRADITIONAL MEDICARE B-[place]: [employer] [place] ACS - TMHP - TRADITIONAL MEDICARE B-[place]: [employer] Encounters Encounter Performer Location Date Lab Report Kelsey Tay MD [facility] Jul 06, 2014 Problems Problem Effective Dates Problem Status [...] December 21, 2013 bone density Completed at [facility] Jun 17, 2014 smoking status Never smoker [...]
--- OUTSIDE RECORDS SUMMARY | 2019-03-25 07:12 | XMS REPORT | Continuity of Care Document ---
Author Author [facility] Organization [facility] Address Unknown Phone Unavailable Care Team Providers Care Mathematics Professor Name Role Phone MD Jasvir, Kelsey SWIFT Unavailable Insurance Providers Payer name Policy type / Coverage type Policy ID Covered alliance party ID Policy [employer] MEDIC[place]: [employer] [place] ACS - TMHP - TRADITIONAL MEDICARE B-[place]: [employer] MEDICARE B-[place]: [employer] MEDICARE B-[place]: N[employer]AS [employer] MEDICARE B-[place]: NOVITAS [facility] DUAL COMPLETE - MEDICARE R [place]: ACS - TMHP - TRADITIONAL MEDICARE B-[place]: NOVITAS [facility] [place]: ACS - TMHP - TRADITIONAL MEDICARE B-[place]: NOVITAS [facility] [place]: ACS - TMHP - TRADITIONAL MEDICARE B-[place]: [employer] [place]: ACS - TMHP - TRADITIONAL MEDICARE B-[place]: [employer] [place]: ACS - TMHP - TRADITIONAL MEDICARE B-[place]: [employer] [place]: ACS - TMHP - TRADITIONAL MEDICARE B-[place]: [employer] [place]: ACS - TMHP - TRADITIONAL MEDICARE B-[place]: [employer] [place]: ACS - TMHP - TRADITIONAL MEDICARE B-[place]: NOVITAS [facility] [place]: ACS - TMHP - TRADITIONAL MEDICARE [...] - TMHP - TRADITIONAL MEDICARE B-[place]: NOVITAS [facility] [place]: ACS - TMHP - TRADITIONAL MEDICARE B-[place]: NOVITAS [facility] [place]: ACS - TMHP - TRADITIONAL MEDICARE B-[place]: [employer] [facility] - DUAL COMPLETE - ([place]: ACS [...] ACS - TMHP - TRADITIONAL MEDICARE B-[place]: [employer] [facility] Encounters Encounter Performer Location Date Lab Report Kelsey Tay MD [facility] Jan 27, 2015 Problems Problem [...] December 21, 2013 bone density Completed at [facility] Jun 17, 2014 smoking status Never smoker [...]
--- OUTSIDE RECORDS SUMMARY | 2019-03-25 07:12 | XMS REPORT | Continuity of Care Document ---
Author Author [facility] Organization [facility] Address Unknown Phone Unavailable Care Team Providers Care General Science Teacher Name Role Phone MD Jasvir, Kelsey SWIFT Unavailable Insurance Providers Payer name Policy type / Coverage type Policy ID Covered green party ID Policy [employer] MEDICARE B-[place]: N[employer]AS [employer] [place] ACS - TMHP - TRADITIONAL MEDICARE B-[place]: N[employer] MEDICARE B-[place]: N[employer]ITAS [employer] MEDICARE B-[place]: NOVITAS [employer] MEDICARE B-[place]: NOVITAS [employer] [facility] DUAL COMPLETE - MEDICARE R [place]: ACS - TMHP - TRADITIONAL MEDICARE B-[place]: NOVITAS [employer] [place]: ACS - TMHP - TRADITIONAL MEDICARE B-[place]: NOVITAS [employer] [place]: ACS - TMHP - TRADITIONAL MEDICARE B-[place]: N[employer]AS [employer] [place]: ACS - TMHP - TRADITIONAL MEDICARE B-[place]: N[employer] [place]: ACS - TMHP - TRADITIONAL MEDICARE B-[place]: N[employer] [place]: ACS - TMHP - TRADITIONAL MEDICARE B-[place]: N[employer] [place]: ACS - TMHP - TRADITIONAL MEDICARE B-[place]: N[employer] [place]: ACS - TMHP - TRADITIONAL MEDICARE B-[place]: NOVITAS [employer] [place]: ACS - TMHP - TRADITIONAL MEDICARE [...] - TMHP - TRADITIONAL MEDICARE B-[place]: NOVITAS [employer] [place]: ACS - TMHP - TRADITIONAL MEDICARE B-[place]: NOVITAS [employer] [place]: ACS - TMHP - TRADITIONAL MEDICARE B-[place]: [employer] [facility] - DUAL COMPLETE - ([place]: [...] ACS - TMHP - TRADITIONAL MEDICARE B-[place]: [employer] Encounters Encounter Performer Location Date Lab Report Kelsey Tay MD [facility] Nov 23, 2014 Problems Problem Effective Dates Problem Status [...] December 21, 2013 bone density Completed at [facility] Jun 17, 2014 smoking status Never [...] MOUTH EVERY EVENING Dec 16, 2013 Active LEVOTHYROXINE SODIUM 25 [...] free T4, FREE 1.65 ng/dl 0.76-1.46 High December 17, 2013 antinuclear antibody MICHAELLE Positive null Negative Abnormal December 17, 2013 antinuclear antibody MICHAELLE Positive null Negative Abnormal
--- NOTE | 2019-03-25 12:24 | Operative Report ---
DATE OF PROCEDURE: 03/25/2019 SURGEON: Dany Nava MD PREOPERATIVE DIAGNOSES: Cholecystitis and cholelithiasis. POSTOPERATIVE DIAGNOSIS: Cholecystitis and cholelithiasis. OPERATION PERFORMED: Laparoscopic cholecystectomy. ECONOMIC DEVELOPMENT DIRECTOR: CRISTIANE Everett. ANESTHESIA: General. COMPLICATIONS: None. ESTIMATED BLOOD LOSS: Minimal. DESCRIPTION OF PROCEDURE: With the patient lying in bed in the supine position under good general endotracheal anesthesia, the abdomen was prepped with Betadine solution and draped in the usual manner. A Veress needle was introduced into the right upper quadrant and pneumoperitoneum was established without any difficulty. A 5 mm trocar was placed in the right subcostal region and a 5 mm videolaparoscope was placed into the intraabdominal cavity. Video laparoscopy at this point revealed the patient had some adhesions to the subumbilical area from the previous surgery. Another 5 mm trocar was placed in the subxiphoid region and the adhesions to the undersurface of the umbilicus was then slowly and carefully taken down. An 11 mm trocar was then placed through the umbilicus into the intraabdominal cavity. A 10 mm videolaparoscope was placed into the intraabdominal cavity. Another 5 mm trocar was placed in the right subcostal region. Laparoscopy at this point revealed a gallbladder that contained some stones. There was some mild fatty infiltration of the liver and the previously described adhesions to the lower abdomen. We decided to go ahead and proceed with a cholecystectomy. The peritoneum overlying the neck of the gallbladder was then opened and the cystic duct was identified. The cystic duct was followed to its junction with the common duct. The cystic duct was then circumferentially dissected away from the common duct, doubly clipped and divided. The cystic artery was similarly doubly clipped and divided. The gallbladder was then slowly and carefully taken off the liver bed using the cautery scissors and perfect hemostasis was ascertained. The gallbladder was then grasped through the umbilical port and removed without any difficulty. Video laparoscopy was then again carried out, the liver bed was found to be perfectly dry. All the excess fluid was aspirated. The pneumoperitoneum was evacuated and all the trocars were removed under direct vision. The midline fascia at the umbilicus was then closed with a [id number] of 0 Vicryl. All layers were infiltrated on the way out with solution of 0.25% Marcaine, subcutaneous tissue was approximated with 3-0 Vicryl and the skin was closed with subcuticular 5-0 Vicryl. Benzoin, Steri-Strips, and Band-Aids were applied. The sponge, lap, and needle count were correct. The patient tolerated the procedure well and returned to the recovery room in stable condition. MD ASHLEIGH Platt/MINERVA /[id number]
[2019-03-25 12:40] VITALS: BP 113/50
== END | disposition home or self-care (01) ==
LOC: OR 07:00
PROVIDERS: ATTEND Surgery
DX: K80.10 Calculus of gallbladder with chronic cholecystitis without obstruction (principal); K82.8 Other specified diseases of gallbladder; Z01.810 Encounter for preprocedural cardiovascular examination; Z01.812 Encounter for preprocedural laboratory examination; Z01.811 Encounter for preprocedural respiratory examination; M10.9 Gout, unspecified; E03.9 Hypothyroidism, unspecified; E78.5 Hyperlipidemia, unspecified; M19.90 Unspecified osteoarthritis, unspecified site
CPT/HCPCS: 36415; 47562; 71046; 80053; 81003; 85025; 88304; 93005; C1766; J1100; J1885; J2001; J2405; J2704; J3010; J3490